=== PATIENT | male | born 1985 | race African-American/Black ===

== ENCOUNTER 2016-07-07 18:30 | Emergency (ER) ==
[2016-07-07 18:45] LABS: URINE CULTURE PL NEEDED? NO; URINE SOURCE VOIDED
[2016-07-07 19:36] LABS: BILIRUBIN URINE NEGATIVE (NEGATIVE); BLOOD URINE NEGATIVE (NEGATIVE); CLARITY CLEAR (CLEAR); COLOR YELLOW; GLUCOSE URINE NEGATIVE (NEGATIVE); LEUKOCYTES URINE NEGATIVE (NEGATIVE); NITRITE URINE NEGATIVE (NEGATIVE); PROTEIN URINE TRACE mg/dL (NEGATIVE); UROBILINOGEN URINE NORMAL
[2016-07-07 19:38] LABS: URINE EPITHELIAL CELLS <10 /HPF (<10)
[2016-07-07 19:39] LABS: URINE RBC <10 /HPF (<10)
[2016-07-07] MEDS ORDERED: CIPRO PO ONE (19:54)
--- NOTE | 2016-07-07 19:54 | PROVIDER DOCUMENTATION ---
HPI-Male Problem - General Chief Complaint: UTI Symptoms Stated Complaint: MALE Time Seen by Provider: 07/07/16 19:13 Source: patient Allergies/Adverse Reactions: Patient Allergies Allergy/AdvReac Type Severity Reaction Status Date / Time No Known Allergies Allergy Verified 03/09/16 10:06 Home Medications: Home Medication List Medication Instructions Recorded Confirmed Last Taken Type Ciprofloxacin HCl [Cipro] 500 mg PO BID #14 tablet 07/07/16 Unknown Rx Phenazopyridine HCl [Pyridium] 100 mg PO TID #6 tablet 07/07/16 Unknown Rx - History of Present Illness-Male Nature of Presenting Problem: 31 y/o BM c/o dysuria, bilat low back pain x 2 weeks. Pt states no d/c and has one sexual partner for 12 years. Reports increased drinking energy drinks, and still drinks some water. Denies any fever/chills, abd. pain. Review of Systems - Adult - REVIEW OF SYSTEMS - ADULT Constitutional: reports: no symptoms reported. denies: chills, fever Eyes: reports: no symptoms reported. denies: blurred vision, double vision Ears, Nose, Mouth & Throat: reports: no symptoms reported. denies: ear pain, nose pain Cardiovascular: reports: no symptoms reported. denies: chest pain, palpitations Respiratory: reports: no symptoms reported. denies: dyspnea on exertion, shortness of breath Gastrointestinal: reports: no symptoms reported. denies: abdominal pain, nausea , vomiting Genitourinary: reports: see HPI, dysuria. denies: frequency Musculoskeletal: reports: see HPI, back pain. denies: joint pain, joint swelling Integumentary: reports: no symptoms reported. denies: nail changes, rash Neurological: reports: no symptoms reported. denies: numbness, paresthesia Psychiatric: reports: no symptoms reported Endocrine: reports: no symptoms reported. denies: cold intolerance, heat intolerance Hematologic/Lymphatic: reports: no symptoms reported. denies: easy bruising, prolonged bleeding Allergic/Immunologic: reports: no symptoms reported All Other Systems: Reviewed and Negative Past History - Adult - PAST MEDICAL HISTORY-ADULT Review of Records: reports: Nursing Assessment Review, Medications Reviewed Major Childhood Illnesses: reports: denies history Cardiovascular: reports: HTN Respiratory: reports: denies history Gastrointestinal: reports: denies history Obstetrical/Gynecological: reports: denies history Genitourinary: reports: denies history Musculoskeletal: reports: denies history Neurological: reports: Seizures/Epilepsy Endocrine/Immune: reports: denies history Other Conditions: reports: denies history - PRIOR SURGERIES/PROCEDURES Surgical/Procedure History: reports: reviewed, not pertinent - IMMUNIZATION STATUS Childhood Immunizations: See Nurse Assessment Flu Vaccine: See Nurse Assessment - FAMILY HISTORY Family History: other (pt denies any immediate family hx of heart attack with persons <55 yo) - SOCIAL HISTORY Smoking: quit greater than 1 year Living Situation: family Physical Exam-General - PHYSICAL EXAM-ADULT Initial Vital Signs Reviewed: Yes - CONSTITUTIONAL General Appearance: alert, mild distress - EYES Eyes: pink conjunctivae - HEAD, EARS, NOSE, MOUTH & THROAT HENMT: normocephalic/atraumatic, moist mucous membranes - NECK Neck: normal inspection - RESPIRATORY Respiratory: no respiratory distress - GASTROINTESTINAL (ABDOMEN) Abdominal Exam: normal bowel sounds, non tender, soft. negative: distended, guarding, rigid - MUSCULOSKELETAL Back Exam: normal inspection, no CVA tenderness, other (TTP bilat low back) Extremity: normal gait - SKIN Integumentary: normal color, normal turgor, warm/dry - NEUROLOGIC Neurologic: negative: aphasia - PSYCHIATRIC Psych/Mental Status: normal mood/affect, normal thought content, normal thought process, oriented x 3 Progress - PLAN OF CARE/RESULTS Progress/Plan/Lab Results: Laboratory Tests 07/07/16 18:40 Urine Source VOIDED Urine Color YELLOW Urine Clarity CLEAR Urine pH 5.0 Ur Specific [place] 1.020 Urine Protein TRACE A Urine Ketones TRACE Urine Blood NEGATIVE Urine Nitrite NEGATIVE Urine Bilirubin NEGATIVE Urine Urobilinogen NORMAL Urine Microscopic RBC <10 Urine WBC NEGATIVE Ur Epithelial Cells <10 Urine Bacteria 1+ Urine Glucose NEGATIVE Orders Category Date Time Status CHLAMYDIA AND GC BY PCR URINE [[place]] Stat Lab 07/07/16 20:[address] W/POSS RFLX CULT [URINALYSIS] Stat Lab 07/07/16 18:40 Completed Ciprofloxacin [Cipro] Med 07/07/16 19:54 Discontinued 500 mg PO NOW ONE Vital Signs Temp Pulse Resp BP Pulse Ox 07/07/16 20:11 98.5 F 81 20 149/102 96 07/07/16 18:34 98 F 89 18 151/104 97 No Known Allergies Allergy (Verified 03/09/16 10:06) Ciprofloxacin HCl [Cipro] 500 mg PO BID #14 tablet 07/07/16 Phenazopyridine HCl [Pyridium] 100 mg PO TID #6 tablet 07/07/16 Laboratory 07/07/16 18:40 Urine Source VOIDED Urine Color YELLOW Urine Clarity CLEAR Urine pH 5.0 Ur Specific [place] 1.020 Urine Protein TRACE A Urine Ketones TRACE Urine Blood NEGATIVE Urine Nitrite NEGATIVE Urine Bilirubin NEGATIVE Urine Urobilinogen NORMAL Urine Microscopic RBC <10 Urine WBC NEGATIVE Ur Epithelial Cells <10 Urine Bacteria 1+ Urine Glucose NEGATIVE Discussed results and f/u with urologist with the pt. Departure - Departure Time of Disposition Order: 19:51 DIAGNOSIS: Mild dehydration Proteinuria Qualifiers: Proteinuria type: unspecified Qualified Code(s): R80.9 - Proteinuria, unspecified UTI (urinary tract infection) Qualifiers: Urinary tract infection type: acute cystitis Hematuria presence: without hematuria Qualified Code(s): N30.00 - Acute cystitis without hematuria Disposition: HOME 01 Certified Medical Emergency: Emergent Condition: Stable Additional Instructions: Take medications as directed. Follow up with urology for further evaluation. Return if symptoms get worse. Drink plenty of water. ED Follow Up Instructions: You have been treated by a care provider in the Emergency Department. These instructions are being provided to you so you can have an understanding of how to care for yourself upon discharge. Upon discharge from the Emergency Department, you are responsible for making arrangements for follow-up care by a physician of your choice. Take all prescribed medications as directed. Return to the Emergency Department immediately for any new or worsening symptoms. You may call the Physician Referral phone number at [phone] to obtain a list of Physicians who are taking new patients. Prescriptions: Ciprofloxacin HCl [Cipro] 500 mg PO BID #14 tablet Phenazopyridine HCl [Pyridium] 100 mg PO TID #6 tablet Referrals: None,PCP [Primary Care Provider] - Garrett Carvalho MD [STAFF PHYSICIAN] - Forms: Return to School/Parent Work Instructions: Phenazopyridine tablets, Urinary Tract Infection, [id number], Dehydration, Adult, [id number], Ciprofloxacin tablets, Proteinuria Attestation - Physician/ GAYATHRI Attestation Patient care was provided by Advanced Practice Provider:: Yes Advanced Practice Provider:: Magaly Barrett Advanced Practice Provider documentation review:: The Mid-level provider documentation, treatment plan and medical decision making was reviewed by the physician who agrees with all treatment and medical decision making by the MLP.
[2016-07-07 20:12] VITALS: BP 149/102
== END 2016-07-07 20:09 | disposition home or self-care (01) ==
LOC: P.ED 18:30
DX: N30.00 Acute cystitis without hematuria (principal); R80.9 Proteinuria, unspecified; E86.0 Dehydration; R30.0 Dysuria; M54.5 Low back pain; I10 Essential (primary) hypertension; R56.9 Unspecified convulsions; Z87.891 Personal history of nicotine dependence
CPT/HCPCS: 81001; 87491; 87591; 99283